=== PATIENT | male | born 1995 | race Caucasian/White ===

== ENCOUNTER 2025-05-29 23:14 | Emergency (ER) | payer OTHER ==
[~2025-05-29] VITALS: Ht 167.6 cm; Wt 61.2 kg
[~2025-05-29 23:14] MED LIST: ALBU90OI6; CYCL10 PO; Cleocin HCl150 MG PO; DOCU100 PO; Miralax17 GM PO; Naprosyn500 MG PO; Ultram50 MG PO; XYZAL5 MG PO
[2025-05-29 23:20] VITALS: BP 133/105
[2025-05-29] MEDS ORDERED: RX Prepack 6 Tabs Oxycodone 5mg UD ONE (23:25)
[2025-05-29] MEDS ORDERED: CLIN300 PO (23:27)
== END 2025-05-30 00:28 | disposition home or self-care (01) ==
LOC: ER 23:14
DX: K04.7 Periapical abscess without sinus (principal); J45.909 Unspecified asthma, uncomplicated
CPT/HCPCS: 99282; A9270